=== PATIENT | female | born 1985 | race Hispanic/Latino ===

== ENCOUNTER 2017-11-12 21:56 | Emergency (ER) | payer SELFPAY ==
[~2017-11-12] VITALS: Ht 162.6 cm; Wt 93.2 kg
[~2017-11-12 21:56] MED LIST: PROVENTIL HFA IN; SINGULAIR10 MG PO
[2017-11-12 22:55] LABS: URINE BILIRUBIN - DIPSTICK NEGATIVE (NEGATIVE); URINE BLOOD DIPSTICK NEGATIVE (NEGATIVE); URINE COLOR YELLOW; URINE GLUCOSE - DIPSTICK NEGATIVE (NEGATIVE); URINE KETONE NEGATIVE (NEGATIVE); URINE LEUK ESTERASE NEGATIVE (Negative); URINE NITRITE - DIPSTICK NEGATIVE (Negative); URINE PH 5.5 (4.5-8.0); URINE PROTEIN - DIPSTICK NEGATIVE (NEG-TRACE); URINE SPECIFIC GRAVITY 1.015; URINE UROBILINOGEN - DIPSTICK 0.2 E.U./dL (0.2)
[2017-11-12 23:00] LABS: URINE CLARITY CLEAR
[2017-11-12 23:11] LABS: INFLUENZA A NONE DETECTED (NONE DETECT); INFLUENZA B NONE DETECTED (NONE DETECT)
[2017-11-13] MEDS ORDERED: AMOXICILLIN500 MG PO (01:49)
[2017-11-13 02:09] VITALS: BP 120/77
== END 2017-11-13 02:10 | disposition home or self-care (01) | DRG 153 ==
LOC: ED 21:56
PROVIDERS: Emergency Medicine
DX: J06.9 Acute upper respiratory infection, unspecified (principal); F17.210 Nicotine dependence, cigarettes, uncomplicated; R59.0 Localized enlarged lymph nodes; R05 Cough; M79.1 Myalgia

== ENCOUNTER 2018-02-12 21:05 | Emergency (ER) | payer OTHER ==
[~2018-02-12] VITALS: Ht 162.6 cm; Wt 90.0 kg
[~2018-02-12 21:05] MED LIST changes: +AMOXICILLIN500 MG PO
[2018-02-12] MEDS ORDERED: NORCO1 TA1 PO (21:31)
[2018-02-12] MEDS ORDERED: TRAMADOL HCL50 MG PO (23:32)
[2018-02-12] MEDS ORDERED: IBUPROFEN600 MG PO (23:32)
[2018-02-12 23:43] VITALS: BP 115/83
== END 2018-02-12 23:43 | disposition home or self-care (01) | DRG 948 ==
LOC: ED 21:05
DX: G89.18 Other acute postprocedural pain (principal); I82.811 Embolism and thrombosis of superficial veins of right lower extremity; M79.604 Pain in right leg; R22.41 Localized swelling, mass and lump, right lower limb

== ENCOUNTER 2018-05-03 21:36 | Emergency (ER) | payer OTHER ==
[~2018-05-03] VITALS: Ht 162.6 cm; Wt 89.0 kg
[~2018-05-03 21:36] MED LIST changes: +IBUPROFEN600 MG PO; +NORCO1 TA1 PO; +TRAMADOL HCL50 MG PO
[2018-05-03] MEDS ORDERED: SINGULAIR10 MG PO (23:22)
[2018-05-04 00:02] VITALS: BP 100/62
== END 2018-05-04 00:01 | disposition home or self-care (01) ==
LOC: ED 21:36
DX: S20.211A Contusion of right front wall of thorax, initial encounter (principal); S60.222A Contusion of left hand, initial encounter; S06.0X0A Concussion without loss of consciousness, initial encounter; W01.10XA Fall on same level from slipping, tripping and stumbling with subsequent striking against unspecified object, initial encounter; Y93.01 Activity, walking, marching and hiking; Y92.009 Unspecified place in unspecified non-institutional (private) residence as the place of occurrence of the external cause

== ENCOUNTER 2018-11-21 12:45 | Emergency (ER) | payer OTHER ==
[~2018-11-21] VITALS: Ht 162.6 cm; Wt 80.0 kg
[2018-11-21 13:28] LABS: HEMATOCRIT 41.5 % (37.0-47.0); HEMOGLOBIN 13.8 g/dl (12.0-16.0); IMMATURE GRANULOCYTES 0.3 % (0.0-5.0); MEAN CELL VOLUME 86.8 fL CALC (80.0-100.0); MEAN CORPUSCULAR HGB 28.9 pG CALC (26.0-32.0); MEAN CORPUSCULAR HGB CONC 33.3 g/L CALC (32.0-36.0); NEUT# 8.69 thou/uL (2.00-7.15); RED BLOOD COUNT 4.78 mill/uL (4.20-5.60); RED CELL DISTRI WIDTH 14.4 % (11.5-15.5)
[2018-11-21 13:34] LABS: ALBUMIN 4.3 g/dL (3.2-5.0); ALKALINE PHOSPHATASE 66 u/l (38-126); ANION GAP 14 (6-22 (CALC)); BILIRUBIN, TOTAL 0.3 mg/dL (0.0-1.4); BUN 13 mg/dL (7-17); BUN/CREATININE RATIO 24 (12-20 (CALC)); CARBON DIOXIDE 23 mmol/l (22-30); CHLORIDE 106 mmol/l (95-108); CREATININE 0.5 mg/dL (0.5-1.0); GFR > 60 ML/MIN (>=60 (CALC)); GFR FOR AFR.AMER. > 60 ML/MIN (>=60 (CALC)); LIPASE 45 u/l (23-300); POTASSIUM 3.8 mmol/l (3.5-5.1); SGOT/AST 19 u/l (14-36); SODIUM 139 mmol/l (137-146); TOTAL PROTEIN 7.6 g/dL (6.3-8.2)
[2018-11-21 13:43] LABS: URINE BILIRUBIN - DIPSTICK NEGATIVE (NEGATIVE); URINE BLOOD DIPSTICK NEGATIVE (NEGATIVE); URINE COLOR YELLOW; URINE GLUCOSE - DIPSTICK NEGATIVE (NEGATIVE); URINE KETONE NEGATIVE (NEGATIVE); URINE LEUK ESTERASE NEGATIVE (NEGATIVE); URINE NITRITE - DIPSTICK NEGATIVE (Negative); URINE PH 7.5 (4.5-8.0); URINE PROTEIN - DIPSTICK NEGATIVE (NEG-TRACE); URINE UROBILINOGEN - DIPSTICK 0.2 E.U./dL (0.2)
[2018-11-21 13:44] LABS: BARBITURATES NEGATIVE (NEGATIVE); COCAINE NEGATIVE (NEGATIVE); METHADONE NEGATIVE (NEGATIVE); OXCYCODONE NEGATIVE (NEGATIVE); TETRAHYDROCANNABIONOL NEGATIVE (NEGATIVE); TRICYLIC ANTIDEPRESSANTS NEGATIVE (NEGATIVE)
[2018-11-21] MEDS ORDERED: TORADOL PO (14:55)
[2018-11-21] MEDS ORDERED: ZITHROMAX250 MG PO (14:55)
[2018-11-21] MEDS ORDERED: MEDDOSEPAK PO (14:55)
[2018-11-21 15:44] VITALS: BP 110/73
== END 2018-11-21 15:55 | disposition home or self-care (01) ==
LOC: ED 12:45
DX: R51 Headache (principal); R07.89 Other chest pain; F17.210 Nicotine dependence, cigarettes, uncomplicated

== ENCOUNTER 2020-02-04 | Emergency (ER) | payer MEDICAID ==
[~2020-02-04] MED LIST changes: +MEDDOSEPAK PO; +TORADOL PO; +ZITHROMAX250 MG PO
[2020-02-04 14:32] LABS: HEMATOCRIT 39.8 % (37.0-47.0); HEMOGLOBIN 13.3 g/dl (12.0-16.0); IMMATURE GRANULOCYTES 0.2 % (0.0-5.0); MEAN CELL VOLUME 85.6 fL CALC (80.0-100.0); MEAN CORPUSCULAR HGB 28.6 pG CALC (26.0-32.0); MEAN CORPUSCULAR HGB CONC 33.4 g/dL CAL (32.0-36.0); NEUT# 6.85 thou/uL (2.00-7.15); RED BLOOD COUNT 4.65 mill/uL (4.20-5.60); RED CELL DISTRI WIDTH 14.2 % (11.5-15.5)
[2020-02-04] MEDS ORDERED: EPI-PEN (14:38)
[2020-02-04 14:46] LABS: ANION GAP 12 (6-22 (CALC)); BUN 7 mg/dL (7-17); BUN/CREATININE RATIO 14 (12-20 (CALC)); CARBON DIOXIDE 21 mmol/l (22-30); CHLORIDE 108 mmol/l (95-108); CREATININE 0.5 mg/dL (0.5-1.0); GFR > 60 ML/MIN (>=60 (CALC)); GFR FOR AFR.AMER. > 60 ML/MIN (>=60 (CALC)); POTASSIUM 3.6 mmol/l (3.5-5.1); SODIUM 137 mmol/l (137-146)
== END 2020-02-04 15:35 | disposition home or self-care (01) ==
PROVIDERS: Family Medicine
DX: R51 Headache (principal); F17.200 Nicotine dependence, unspecified, uncomplicated; R42 Dizziness and giddiness; H53.149 Visual discomfort, unspecified

== ENCOUNTER 2020-06-10 08:02 | Emergency (ER) | payer MEDICAID ==
[~2020-06-10] VITALS: Ht 162.6 cm; Wt 95.0 kg
[~2020-06-10 08:02] MED LIST changes: +EPI-PEN
[2020-06-10 09:12] VITALS: BP 127/68
== END 2020-06-10 09:07 | disposition home or self-care (01) ==
LOC: ED 08:02
DX: N64.4 Mastodynia (principal); N63.20 Unspecified lump in the left breast, unspecified quadrant; N63.10 Unspecified lump in the right breast, unspecified quadrant; F17.200 Nicotine dependence, unspecified, uncomplicated

== ENCOUNTER 2021-04-25 01:19 | Emergency (ER) | payer OTHER, MEDICAID ==
[~2021-04-25] VITALS: Ht 162.6 cm; Wt 88.0 kg
[2021-04-25] MEDS ORDERED: PERCOCET 5/321 COMBO PO (02:01)
[2021-04-25 02:35] VITALS: BP 130/64
== END 2021-04-25 02:35 | disposition home or self-care (01) | DRG 603 ==
LOC: ED 01:19
DX: L08.89 Other specified local infections of the skin and subcutaneous tissue (principal); J45.909 Unspecified asthma, uncomplicated; F17.200 Nicotine dependence, unspecified, uncomplicated

== ENCOUNTER 2021-06-02 11:37 | Emergency (ER) | payer MEDICAID ==
[~2021-06-02 11:37] MED LIST changes: +PERCOCET 5/321 COMBO PO
== END 2021-06-02 12:08 | disposition left against medical advice (07) | DRG 951 ==
LOC: ED 11:37 → LWOBS 12:08
DX: Z53.21 Procedure and treatment not carried out due to patient leaving prior to being seen by health care provider (principal)

== ENCOUNTER 2023-11-01 20:46 | Emergency (ER) | payer BC, MEDICAID ==
[~2023-11-01] VITALS: Ht 162.6 cm; Wt 90.0 kg
[2023-11-01 22:47] LABS: BASO% 0.1 % (0-3); EOS% 1.4 % (0-8); HEMATOCRIT 42.4 % (37.0-47.0); HEMOGLOBIN 13.9 g/dl (12.0-16.0); IMMATURE GRANULOCYTES 0.2 % (0.0-5.0); LYMPH% 23.9 % (15-41); MEAN CELL VOLUME 86.2 fL CALC (80.0-100.0); MEAN CORPUSCULAR HGB 28.3 pG CALC (26.0-32.0); MEAN CORPUSCULAR HGB CONC 32.8 g/dL CAL (32.0-36.0); MONO% 5.4 % (2-13); NEUT# 9.25 thou/uL (2.00-7.15); RED BLOOD COUNT 4.92 mill/uL (4.20-5.60)
[2023-11-01 23:04] LABS: ALBUMIN 4.3 g/dL (3.2-5.0); ALKALINE PHOSPHATASE 73 u/l (38-126); ANION GAP 13 (6-22 (CALC)); BILIRUBIN, TOTAL 0.2 mg/dL (0.02-1.3); BUN 12 mg/dL (7-17); BUN/CREATININE RATIO 25 (12-20 (CALC)); CARBON DIOXIDE 21 mmol/l (22-30); CHLORIDE 110 mmol/l (95-108); CREATININE 0.5 mg/dL (0.5-1.0); GFR FOR AFR.AMER. > 60 ML/MIN (>=60 (CALC)); GFR OTHER RACES > 60 ML/MIN (>=60 (CALC)); POTASSIUM 4.2 mmol/l (3.5-5.1); SGOT/AST 28 u/l (14-36); SODIUM 139 mmol/l (137-146); TOTAL PROTEIN 7.4 g/dL (6.3-8.2)
[2023-11-02] MEDS ORDERED: CLINDAMYCIN300 M1 PO (01:40)
[2023-11-02 01:50] VITALS: BP 136/95
== END 2023-11-02 01:50 | disposition home or self-care (01) | DRG 566 ==
LOC: ED 20:46
PROVIDERS: Family Medicine
DX: M25.461 Effusion, right knee (principal); K04.7 Periapical abscess without sinus; J45.909 Unspecified asthma, uncomplicated; F17.200 Nicotine dependence, unspecified, uncomplicated

== ENCOUNTER 2024-05-31 20:48 | Emergency (ER) | payer BC ==
[~2024-05-31] VITALS: Ht 162.6 cm; Wt 96.0 kg
[~2024-05-31 20:48] MED LIST changes: +CLINDAMYCIN300 M1 PO
[2024-05-31 21:48] VITALS: BP 139/91
[2024-05-31 22:00] VITALS: BP 139/91
[2024-05-31] MEDS ORDERED: HYDROcodone POLISTIREX/CHLORPH 5 ML UDC PO ONE (22:00)
[2024-05-31 22:15] VITALS: BP 138/84
[2024-05-31 22:30] VITALS: BP 151/94
[2024-05-31 22:40] LABS: BASO% 0.3 % (0-3); EOS% 2.3 % (0-8); HEMATOCRIT 40.3 % (37.0-47.0); HEMOGLOBIN 13.3 g/dl (12.0-16.0); IMMATURE GRANULOCYTES 0.1 % (0.0-5.0); LYMPH% 22.3 % (15-41); MEAN CELL VOLUME 86.5 fL CALC (80.0-100.0); MEAN CORPUSCULAR HGB 28.5 pG CALC (26.0-32.0); MONO% 8.9 % (2-13); NEUT# 6.33 thou/uL (2.00-7.15); NEUT% 66.1 % (42-76); RED BLOOD COUNT 4.66 mill/uL (4.20-5.60)
[2024-05-31] MEDS ORDERED: [UNRECOGNIZED DRUG - REMARK] (22:48)
[2024-05-31 23:15] VITALS: BP 137/85
[2024-05-31 23:16] VITALS: BP 137/85
== END 2024-05-31 23:16 | disposition home or self-care (01) | DRG 153 ==
LOC: ED 20:48
PROVIDERS: Family Medicine
DX: J06.9 Acute upper respiratory infection, unspecified (principal); J45.909 Unspecified asthma, uncomplicated; F17.200 Nicotine dependence, unspecified, uncomplicated; Z20.822 Contact with and (suspected) exposure to COVID-19

== ENCOUNTER 2024-09-07 20:24 | Emergency (ER) | payer BC ==
[~2024-09-07] VITALS: Ht 162.6 cm; Wt 100.0 kg
[~2024-09-07 20:24] MED LIST changes: +[UNRECOGNIZED DRUG - REMARK]
[2024-09-07 20:49] VITALS: BP 124/79
[2024-09-07 21:00] VITALS: BP 120/87
[2024-09-07 21:15] VITALS: BP 114/79
[2024-09-07] MEDS ORDERED: TETRACAINE HCL 0.5 %/4 ML SOL OS ONE (21:55)
[2024-09-07] MEDS ORDERED: FLUORESCEIN SODIUM 1 MG EA OD ONE ×2 (21:55→22:55)
[2024-09-07 23:12] VITALS: BP 114/79
[2024-09-07] MEDS ORDERED: CIPROFLOXACN0.3 % OD (23:19)
== END 2024-09-07 23:45 | disposition home or self-care (01) | DRG 125 ==
LOC: ED 20:24
DX: S05.01XA Injury of conjunctiva and corneal abrasion without foreign body, right eye, initial encounter (principal); W44.D0XA Magnetic metal object unspecified, entering into or through a natural orifice, initial encounter; F17.200 Nicotine dependence, unspecified, uncomplicated